=== PATIENT | female | born 1980 | race African-American/Black ===

== ENCOUNTER 2021-09-05 22:43 | Emergency (ER) | payer SELFPAY ==
--- NOTE | 2021-09-06 01:13 | EDPHYS ---
Physician Documentation [facility] Name: Héctor Hernández Age: 41 yrs Sex: Female : 1980 Arrival Date: 09/05/2021 Time: 22:47 Bed 12 Private MD: ED Physician Evin Bryson HPI: 09/06 01:06 This 41 yrs old Black Female presents to ER via Ambulatory with complaints of Hand kb Injury, Hand Pain, Laceration To Hand. 01:06 The patient or guardian reports injury, pain, swelling, tenderness. The complaints kb affect the dorsal aspect of distal phalanx of right thumb. Context: The problem was sustained outdoors, resulted from a crush injury. Onset: The symptoms/episode began/occurred yesterday. Modifying factors: The symptoms are alleviated by nothing, the symptoms are aggravated by movement. Associated signs and symptoms: The patient has no apparent associated signs or symptoms. Severity of symptoms: At their worst the symptoms were moderate, in the emergency department the symptoms are unchanged. The patient has not experienced similar symptoms in the past. The patient has not recently seen a physician. Pt states the jared fell and when she pulled her hand away it took the skin off the top of her thumb and crushed the end of it. States she took the nail off because it was scratching the area where the skin came off. This occurred yesterday. . 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 - Social history:: Smoking status: Patient reports the use of cigarette tobacco products, smokes one-half pack cigarettes per day. ROS: 09/06 01:06 Constitutional: Negative for fever, chills, and weight loss. kb MS/extremity: Positive for decreased range of motion, pain, swelling, tenderness, of the dorsal aspect of distal phalanx of right thumb. Skin: Positive for skin avulsion to top of right thumb, nail removed . All other systems are negative. Exam: 01:09 Constitutional: This is a well developed, well nourished patient who is awake, alert, kb and in no acute distress. Head/Face: Normocephalic, atraumatic. ENT: Moist Mucous membranes Respiratory: Respirations even and unlabored. No increased work of breathing. Talking in full sentences Neuro: Awake and alert, GCS 15, oriented to person, place, time, and situation. Moves all extremities. Normal gait. Psych: Awake, alert, with orientation to person, place and time. Behavior, mood, and affect are within normal limits. 01:09 Musculoskeletal/extremity: Extremities: grossly normal except: noted in the dorsal aspect of distal phalanx of right thumb: decreased ROM, pain, swelling, tenderness, ROM: limited active range of motion due to pain, in the dorsal aspect of distal phalanx of right thumb, Circulation is intact in all extremities. Sensation intact. 01:09 Skin: injury, avulsion(s), a small of the dorsal aspect of distal phalanx of right thumb. Vital Signs: 09/05 23:24 BP 136 / 94; Pulse 71; Resp 17; Temp 98.5; Pulse Ox 100% ; Weight 61.23 kg; Height 5 kd3 ft. 1 in. (154.94 cm); Pain 10/10; 23:24 Body Mass Index 25.51 (61.23 kg, 154.94 cm) kd3 MDM: 09/06 00:59 Patient medically screened. kb 01:09 Data reviewed: vital signs, nurses notes. Data interpreted: Pulse oximetry: on room air kb is 100 %. Interpretation: normal. 01:10 Counseling: I had a detailed discussion with the patient and/or guardian regarding: the kb historical points, exam findings, and any diagnostic results supporting the discharge/admit diagnosis, radiology results, the need for outpatient follow up, a family practitioner, to return to the emergency department if symptoms worsen or persist or if there are any questions or concerns that arise at home. 09/05 23:35 Order name: Hand Right 3 View XRAY kb 09/06 01:02 Order name: Wound Care; Complete Time: 44 kb 09/06 01:02 Order name: Finger Splint; Complete Time: :44 kb Administered Medications: 01:43 Drug: Tetanus-Diphtheria Toxoid Adult 0.5 ml {Health Editor: [employer]. Exp: kd3 11/05/2022. Lot #: [id number]. } Route: IM; Site: right deltoid; 01:43 Drug: KeFLEX (cephalexin) 500 mg Route: PO; kd3 01:44 Drug: [place] (HYDROcodone-acetaminophen) (7.5 mg-325 mg) 1 tabs Route: PO; kd3 Disposition: 02:00 Co-signature as Attending Physician, Evin Bryson MD. [facility] Disposition Summary: 09/06/21 01:13 Discharge Ordered Location: Home kb Condition: Stable kb Diagnosis - Displaced fracture of distal phalanx of right thumb kb - Skin avulsion to dorsal aspect of right thumb kb Followup: kb - With: Emergency Department - When: As needed - Reason: Worsening of condition Followup: kb - With: Private Physician - When: 2 - 3 days - Reason: Recheck today's complaints, Continuance of care, Re-evaluation by your physician Discharge Instructions: - Discharge Summary Sheet kb - Deep Skin Avulsion kb - Finger Fracture, Adult, [id number] kb Forms: - Medication Reconciliation Form kb - Thank You Letter kb - Antibiotic Education kb - Prescription Opioid Use kb Prescriptions: - Diclofenac Sodium 75 mg Oral tablet,delayed release (DR/EC) - take 1 tablet by ORAL route 2 times per day As needed; 30 tablet; Refills: 0, kb Product Selection Permitted - Cephalexin 500 mg Oral Capsule - take 1 capsule by ORAL route every 8 hours for 10 days; 30 capsule; Refills: 0, kb Product Selection Permitted Signatures: Dispatcher [employer] Mari Jacob FNP-C FNP-Evin Church MD MD [facility] Charlene Pathak, RN RN kd3
--- NOTE | 2021-09-06 01:13 | ER ---
Nurse's Notes [facility] Name: Héctor Hernández Age: 41 yrs Sex: Female : 1980 Arrival Date: 09/05/2021 Time: 22:47 Bed 12 Private MD: Diagnosis: Displaced fracture of distal phalanx of right thumb;Skin avulsion to dorsal aspect of right thumb Presentation: 09/05 23:24 Chief complaint: Patient states: I WAS WORKING ON MY CAR AND A DANETTE FELL ON MY RIGHT kd3 THUMB. Coronavirus screen: Vaccine status: Patient reports receiving the 2nd dose of the covid vaccine. Ebola Screen: No symptoms or risks identified at this time. Initial Sepsis Screen: Does the patient meet any 2 criteria? No. Patient's initial sepsis screen is negative. Does the patient have a suspected source of infection? No. Patient's initial sepsis screen is negative. Risk Assessment: Do you want to hurt yourself or someone else? Patient reports no desire to harm self or others. Onset of symptoms. 23:24 Method Of Arrival: Ambulatory kd3 23:24 Acuity: ROBBIN 4 kd3 Triage Assessment: 23:26 General: Appears in no apparent distress. Behavior is calm, cooperative, appropriate kd3 for age. Pain: Complains of pain in dorsal aspect of distal phalanx of right thumb, dorsal aspect of proximal phalanx of right thumb and right thumbnail. Musculoskeletal: No deficits noted. Swelling present in dorsal aspect of distal phalanx of right thumb, dorsal aspect of proximal phalanx of right thumb, palmar aspect of distal phalanx of right thumb, palmar aspect of proximal phalanx of right thumb and right thumbnail. 23:26 Injury Description: Crush injury sustained to dorsal aspect of distal phalanx of right kd3 thumb, dorsal aspect of proximal phalanx of right thumb, palmar aspect of distal phalanx of right thumb, palmar aspect of proximal phalanx of right thumb and right thumbnail. 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 - Social history:: Smoking status: Patient reports the use of cigarette tobacco products, smokes one-half pack cigarettes per day. Screenin:29 Abuse screen: Denies threats or abuse. Denies injuries from another. Nutritional kd3 screening: No deficits noted. Tuberculosis screening: No symptoms or risk factors identified. Fall Risk None identified. Assessment: 09/06 01:48 Reassessment: Patient and/or family updated on plan of care and expected duration. Pain kd3 level reassessed. Patient is alert, oriented x 3, equal unlabored respirations, skin warm/dry/pink. Vital Signs: 09/05 23:24 BP 136 / 94; Pulse 71; Resp 17; Temp 98.5; Pulse Ox 100% ; Weight 61.23 kg; Height 5 kd3 ft. 1 in. (154.94 cm); Pain 10/10; 23:24 Body Mass Index 25.51 (61.23 kg, 154.94 cm) kd3 ED Course: 22:47 Patient arrived in ED. jj6 23:26 Triage completed. kd3 23:26 Arm band placed on left wrist. kd3 23:29 Patient has correct armband on for positive identification. kd3 09/06 00:58 Mari Simms FNP-C [facility]. kb 00:58 Evin Bryson MD is Attending Physician. kb 01:01 Hand Right 3 View XRAY In Process Unspecified. EDMS 01:06 Charlene Pathak, RN is Primary Nurse. kd3 01:48 Assist provider with fracture care of dorsal aspect of distal phalanx of right thumb, kd3 dorsal aspect of proximal phalanx of right thumb and right thumbnail. 01:49 Patient did not have IV access during this emergency room visit. kd3 Administered Medications: 01:43 Drug: Tetanus-Diphtheria Toxoid Adult 0.5 ml {Recovery Room Rn: [employer]. Exp: kd3 11/05/2022. Lot #: [id number]. } Route: IM; Site: right deltoid; 01:43 Drug: KeFLEX (cephalexin) 500 mg Route: PO; kd3 01:44 Drug: [place] (HYDROcodone-acetaminophen) (7.5 mg-325 mg) 1 tabs Route: PO; kd3 Outcome: 01:13 Discharge ordered by MD. hernandez 01:48 Discharged to home ambulatory. kd3 01:48 Condition: stable 01:48 Discharge instructions given to patient, family, Instructed on discharge instructions, follow up and referral plans. medication usage, Prescriptions given X 2. 01:49 Patient left the ED. kd3 Signatures: Dispatcher [employer] EDMS Mari Simms, ALEXIA CASIANO-Mery Mckeon jj6 Charlene Pathak, RN RN kd3
[2021-09-06] MEDS ORDERED: HYDROCODONE/APAP 7.5/325 MG TAB ONE (01:22)
[2021-09-06] MEDS ORDERED: TETANUS & DIPHTHERIA TOX,ADULT 0.5 ML VIAL ONE (01:22)
[2021-09-06] MEDS ORDERED: levETIRAcetam 500 MG TAB ONE (01:22)
[2021-09-06] MEDS ORDERED: CEPHALEXIN 250 MG CAP ONE (01:24)
[2021-09-06 02:03] VITALS: BP 136/94; TEMP 98.5; O2SAT 100
--- NOTE | 2021-09-06 13:52 | RAD REPORT ---
EXAM DESCRIPTION: RAD - Hand Right 3 View - 09/06/2021 1:01 am CLINICAL HISTORY: The patient is 41 years old and is Female; PAIN TECHNIQUE: Frontal, lateral and oblique views of the right hand. COMPARISON: No relevant prior studies available. FINDINGS: BONES/JOINTS: Displaced fracture of the tuft of the first digit is present. No disloca tion. SOFT TISSUES: Laceration to the tip of the first digit is noted. No radiopaque foreign body. IMPRESSION: Displaced fracture of the tuft of the first digit. Electronically signed by: Arpita Trinidad MD 09/06/2021 1:06 AM CHARTERED ACCOUNTANT Due to temporary technical issues with the PACS/Fluency reporting system, reports are being signed by the in house radiologist without review as a courtesy to ensure prompt reporting. The interpreting r adiologist is fully responsible for the content of the report.
== END 2021-09-06 01:49 | disposition home or self-care (01) ==
LOC: ER 22:43
DX: S62.521A Displaced fracture of distal phalanx of right thumb, initial encounter for closed fracture (principal); W27.8XXA Contact with other nonpowered hand tool, initial encounter; Z23 Encounter for immunization; F17.210 Nicotine dependence, cigarettes, uncomplicated
CPT/HCPCS: 90471; 90714; 99284

== ENCOUNTER 2022-11-11 14:32 | Emergency (ER) | payer SELFPAY ==
[2022-11-11] MEDS ORDERED: TETRACAINE HCL 0.5% 4ML OPTH ONE (15:04)
[2022-11-11] MEDS ORDERED: FLUORESCEIN SODIUM 1 MG/WRAP ONE (15:04)
[2022-11-11 16:41] VITALS: BP 154/92; TEMP 97.6; O2SAT 100
--- NOTE | 2022-11-11 16:53 | EDPHYS ---
Physician Documentation [facility] Name: Héctor Hernández Age: 42 yrs Sex: Female : 1980 Arrival Date: 11/11/2022 Time: 14:34 Bed Treatment Private MD: ED Physician Carlos George HPI: 11/11 15:28 This 42 yrs old Black Female presents to ER via Ambulatory with complaints of Eye kb Problem. 15:28 The patient is experiencing foreign body sensation, redness, tearing, The patient kb sustained None. to the left eye, caused by an unknown mechanism. Onset: The symptoms/episode began/occurred 5 day(s) ago. Duration: the symptoms are continuous. Aggravated by nothing. Alleviated by nothing. Associated signs and symptoms: Pertinent positives: None. Severity of symptoms: At their worst the symptoms were mild moderate in the emergency department the symptoms are unchanged. The patient has not experienced similar symptoms in the past. The patient has not recently seen a physician. Historical: - Allergies: 14:38 No Known Allergies; hb - PSHx: 14:38 section; hb ROS: 15:20 Constitutional: Negative for fever, chills, and weight loss. kb 15:20 Eyes: Positive for discharge, redness. 15:20 All other systems are negative. Exam: 15:23 Constitutional: This is a well developed, well nourished patient who is awake, alert, kb and in no acute distress. Head/Face: Normocephalic, atraumatic. ENT: Moist Mucous membranes Cardiovascular: Regular rate and rhythm with a normal S1 and S2. No gallops, murmurs, or rubs. No pulse deficits. Respiratory: Respirations even and unlabored. No increased work of breathing. Talking in full sentences Abdomen/GI: Soft, non-tender. No distention Skin: Warm, dry with normal turgor. Normal color. MS/ Extremity: Pulses equal, no cyanosis. Neurovascular intact. Full, normal range of motion. Neuro: Awake and alert, GCS 15, oriented to person, place, time, and situation. Moves all extremities. Normal gait. 15:23 Eyes: Periorbital structures: appear normal, Pupils: equal, round, and reactive to light and accomodation, Extraocular movements: intact throughout, Conjunctiva: injected, in the left eye, Corneas: are normal, no evidence of abrasion, no foreign body, a fluorescein strip employed to appreciate the findings, Anterior chamber: Intraocular pressure: left eye = 18mmHg. Vital Signs: 14:36 BP 154 / 92; Pulse 76; Resp 16; Temp 97.6; Pulse Ox 100% on R/A; Weight 63.5 kg; Height hb 5 ft. 1 in. ; Pain 7/10; 14:36 Body Mass Index 26.45 (63.50 kg, 154.94 cm) hb 14:36 Pain Scale: Adult hb MDM: 14:45 Patient medically screened. kb 15:24 Differential diagnosis: Corneal abrasion of Corneal ulcer of Foreign body in Acute kb glaucoma in Data reviewed: vital signs, nurses notes. Counseling: I had a detailed discussion with the patient and/or guardian regarding: the historical points, exam findings, and any diagnostic results supporting the discharge/admit diagnosis, the need for outpatient follow up, an opthalmologist, to return to the emergency department if symptoms worsen or persist or if there are any questions or concerns that arise at home. 11/11 14:58 Order name: Eye Tray; Complete Time: 15:09 kb 11/11 14:58 Order name: Fluoresene Opth strip; Complete Time: 15:09 kb Administered Medications: 15:00 Drug: Tetracaine Ophthalmic Drops 0.5 % 1 drops Route: Ophthalmic; Site: left eye; jl7 16:09 Follow up: Response: No adverse reaction jl7 Disposition: 18:02 Co-signature as Attending Physician, Carlos George MD I reviewed the patient's care rt provided by the Advanced Practice Provider and agree with the diagnosis and treatment plan. Disposition Summary: 11/11/22 15:25 Discharge Ordered Location: Home kb Condition: Stable kb Diagnosis - Unspecified conjunctivitis kb Followup: kb - With: Emergency Department - When: As needed - Reason: Worsening of condition Followup: kb - With: Roni Berg MD - When: 1 - 2 days - Reason: Recheck today's complaints Discharge Instructions: - Discharge Summary Sheet kb - Viral Conjunctivitis, Adult kb Forms: - Medication Reconciliation Form kb - Thank You Letter kb - Antibiotic Education kb - Prescription Opioid Use kb Signatures: Mari Simms, ALEXIA CASIANO-Chichi Gill, ALYCE RN hb Salma Mejia RN RN jl7 Carlos George MD MD rt
--- NOTE | 2022-11-11 16:53 | ER ---
Nurse's Notes [facility] Name: Héctor Hernández Age: 42 yrs Sex: Female : 1980 Arrival Date: 11/11/2022 Time: 14:34 Bed Treatment Private MD: Diagnosis: Unspecified conjunctivitis Presentation: 11/11 14:36 Chief complaint: Left eye redness, pain, and itchiness x 5 days. Coronavirus screen: At this time, the client does not indicate any symptoms associated with coronavirus-19. Ebola Screen: No symptoms or risks identified at this time. Initial Sepsis Screen: Does the patient meet any 2 criteria? No. Patient's initial sepsis screen is negative. Does the patient have a suspected source of infection? No. Patient's initial sepsis screen is negative. Risk Assessment: Do you want to hurt yourself or someone else? Patient reports no desire to harm self or others. Onset of symptoms was November 06, 2022. 14:36 Method Of Arrival: Ambulatory hb 14:36 Acuity: ROBBIN 4 hb Historical: - Allergies: 14:38 No Known Allergies; hb - PSHx: 14:38 section; hb Vital Signs: 14:36 BP 154 / 92; Pulse 76; Resp 16; Temp 97.6; Pulse Ox 100% on R/A; Weight 63.5 kg; Height hb 5 ft. 1 in. ; Pain 7/10; 14:36 Body Mass Index 26.45 (63.50 kg, 154.94 cm) hb 14:36 Pain Scale: Adult hb ED Course: 14:34 Patient arrived in ED. rg4 14:38 Triage completed. hb 14:38 Arm band placed on. hb 14:45 Mari Simms FNP-C is [facility]. kb 14:45 Carlos George MD is Attending Physician. kb 14:55 Salma Mejia RN is Primary Nurse. ivan 15:15 Assist provider with eye exam of left eye. using fluorescein stain, Performed by ivan HALE Patient tolerated well. 15:24 Roni Berg MD is Referral Physician. kb 16:09 Patient has correct armband on for positive identification. jlIvonne 16:10 Patient did not have IV access during this emergency room visit. ivan Administered Medications: 15:00 Drug: Tetracaine Ophthalmic Drops 0.5 % 1 drops Route: Ophthalmic; Site: left eye; 7 16:09 Follow up: Response: No adverse reaction jl7 Medication: 16:10 VIS not applicable for this client. jl7 Outcome: 15:25 Discharge ordered by . david 16:10 Discharged to home ambulatory. jl7 16:10 Condition: stable 16:10 Discharge instructions given to patient, Instructed on discharge instructions, follow up and referral plans. Demonstrated understanding of instructions, follow-up care. 16:12 Patient left the ED. jl7 Signatures: Mari Simms, WINE FERMENTER-C WINE FERMENTER-Ckb Chichi Kapadia, RN Melania Segovia4 Salma Mejia RN RN jlIvonne
== END 2022-11-11 16:12 | disposition home or self-care (01) ==
LOC: ER 14:32
DX: H10.9 Unspecified conjunctivitis (principal)
CPT/HCPCS: 99283